=== PATIENT | female | born 1980 | race Two or more races ===

== ENCOUNTER 2022-01-09 22:18 | Emergency (ER) | payer OTHER ==
[~2022-01-09] VITALS: Ht 160 cm; Wt 90.9 kg
[2022-01-09 22:28] VITALS: BP 136/92
[2022-01-09] MEDS ORDERED: AZIT250T9 PO (23:27)
[2022-01-09] MEDS ORDERED: IPRATROPIUM BROMIDE 0.5 MG/2.5 ML NEB SOLUTION NEB ONE (23:30)
[2022-01-09] MEDS ORDERED: ALBUTEROL SULFATE 2.5 MG/0.5 ML NEB SOLUTION NEB ONE (23:30)
[2022-01-10 00:33] LABS: COVID AG,FIA SOURCE NASAL SWAB
== END 2022-01-10 00:58 | disposition home or self-care (01) ==
LOC: EMS 22:18
DX: J40 Bronchitis, not specified as acute or chronic (principal); Z20.822 Contact with and (suspected) exposure to COVID-19
CPT/HCPCS: 71045; 81025; 87426; 93005; 94640; 99285; C9803; J7613

== ENCOUNTER 2022-03-16 10:45 | Emergency (ER) | payer OTHER ==
[~2022-03-16] VITALS: Ht 160 cm; Wt 100.0 kg
[~2022-03-16 10:45] MED LIST: AZIT250T9 PO
[2022-03-16] MEDS ORDERED: COLE1 PO (11:03)
[2022-03-16 11:50] LABS: BASOPHILS % (AUTO) 0.7 % (0.0-2.0); EOSINOPHILS % (AUTO) 0.3 % (1.0-6.0); LYMPHOCYTES # (AUTO) 1.8 K/uL (1.0-4.8); LYMPHOCYTES % (AUTO) 15.6 % (22.0-44.0); MEAN CORPUSCULAR HEMOGLOBIN 29.2 pg (26.0-34.0); MEAN CORPUSCULAR HGB CONC 34.2 G/dL (31.0-37.0); MEAN CORPUSCULAR VOLUME 85 fL (80-100); MONOCYTES # (AUTO) 0.7 K/uL (0.1-1.0); MONOCYTES % (AUTO) 6.3 % (2.0-9.0); NEUTROPHILS # (AUTO) 8.9 K/uL (1.8-7.7); NEUTROPHILS % (AUTO) 77.1 % (40.0-70.0); PLATELET COUNT (AUTO) 405 K/uL (150-450); RED BLOOD CELL COUNT(AUTO) 4.45 MIL/uL (4.00-5.20); RED CELL DISTRIBUTION WIDTH 12.9 % (11.5-14.5)
[2022-03-16 11:54] LABS: APPEARANCE,URINE HAZY (CLEAR); BILIRUBIN,URINE NEGATIVE (NEGATIVE); GLUCOSE, URINE (UA) NEGATIVE (NEGATIVE); LEUKOCYTE ESTERASE ,URINE MODERATE (NEGATIVE); NITRATE,URINE POSITIVE (NEGATIVE); OCCULT BLOOD,URINE MODERATE (NEGATIVE); PROTEIN,URINE TRACE mg/dL (NEGATIVE); SPECIFIC GRAVITIY, URINE 1.022 (1.003-1.030); UROBILINOGEN,URINE <=1.0 mg/dL (<=1.0)
[2022-03-16] MEDS ORDERED: SODIUM CHLORIDE 0.9% 1,000 ML IV ONE (12:00)
[2022-03-16] MEDS ORDERED: ONDANSETRON HCL 4 MG/2 ML VIAL IVP ONE (12:00)
[2022-03-16 12:03] LABS: ANION GAP 10 mmol/L (8-16); CALCIUM, TOTAL 8.7 mg/dL (8.8-10.5); CARBON DIOXIDE 28 mmol/L (22-29); CHLORIDE 102 mmol/L (98-107); CREATININE 0.77 mg/dL (0.60-1.30); GLOMERULAR FILTR. RATE CALC > 60 mL/min (>60); GLUCOSE,RANDOM 109 mg/dL (70-110); POTASSIUM 3.8 mmol/L (3.5-5.1); SODIUM SERUM 140 mmol/L (136-145); UREA NITROGEN, BLOOD 10 mg/dL (7-18)
[2022-03-16 12:15] LABS: COVID AG,FIA SOURCE NASOPHARYNGEAL
[2022-03-16 12:15] LABS: ALANINE AMINOTRANSFERASE 35 U/L (12-78); ALBUMIN 3.5 g/dL (3.4-5.0); ALKALINE PHOSPHATASE 77 U/L (46-116); ASPARTATE AMINOTRANSFERASE 21 U/L (15-37); BILIRUBIN,TOTAL 0.5 mg/dL (0.1-1.0); HCG,QUANTITATIVE < 1 mIU/mL (0-6); LIPASE 127 U/L (73-393); TOTAL PROTEIN, SERUM 7.2 g/dL (6.4-8.2)
[2022-03-16 12:15] LABS: BACTERIA,URINE Many /HPF (None Seen); SQUAMOUS EPITHELIAL CELL,UR Few /LPF (None Seen)
[2022-03-16] MEDS ORDERED: MAG HYDROX/AL HYDROX/SIMETH ES 30 ML SUSPENSION UDCUP PO ONE (12:15)
[2022-03-16] MEDS ORDERED: LIDOCAINE 2% VISCOUS 15 ML SOLUTION UDCUP PO ONE (12:15)
[2022-03-16] MEDS ORDERED: ACETAMINOPHEN 500 MG TABLET PO ONE (14:30)
[2022-03-16] MEDS ORDERED: KETOROLAC TROMETHAMINE 30 MG/ML VIAL IVP ONE (14:30)
[2022-03-16] MEDS ORDERED: CefTRIAXone 1 GM/DEXTROSE 50 ML IV ONE (14:45)
[2022-03-16 15:31] LABS: C-REACTIVE PROTEIN QUANT 10.33 mg/dL (0.00-0.30)
[2022-03-16] MEDS ORDERED: SODIUM CHLORIDE 0.9% 100 ML ONE (15:35)
[2022-03-16] MEDS ORDERED: IOHEXOL 300 MG/ML 100 ML VIAL ONE (15:35)
[2022-03-16 16:22] LABS: ERYTHROCYTE SEDIMENTATION RATE 45 MM/HR (0-20)
[2022-03-16] MEDS ORDERED: MORPHINE SULFATE 4 MG/ML SYRINGE IVP ONE (16:45)
[2022-03-16 16:59] VITALS: BP 116/69
[2022-03-16] MEDS ORDERED: SULF-261 PO (17:31)
== END 2022-03-16 17:47 | disposition home or self-care (01) ==
LOC: EMS 10:45
DX: N12 Tubulo-interstitial nephritis, not specified as acute or chronic (principal); K52.9 Noninfective gastroenteritis and colitis, unspecified; Z90.49 Acquired absence of other specified parts of digestive tract; Z20.822 Contact with and (suspected) exposure to COVID-19
CPT/HCPCS: 36415; 74176; 74177; 80053; 81001; 83690; 84484; 84702; 85025; 85651; 86140; 87086; 87426; 93005; 96361; 96365; 96375; 99285; J1885; J2270; J2405; J7030; J7050; Q9967

== ENCOUNTER 2022-12-16 17:00 | Emergency (ER) | payer OTHER ==
[~2022-12-16] VITALS: Ht 165.1 cm; Wt 95.5 kg
[~2022-12-16 17:00] MED LIST changes: -AZIT250T9 PO; +COLE1 PO; +SULF-261 PO
[2022-12-16] MEDS ORDERED: CETI5TAB14 PO (17:22)
[2022-12-16] MEDS ORDERED: FLUT16SP NASAL (17:22)
[2022-12-16 17:42] LABS: COVID AG,FIA SOURCE NASAL SWAB
[2022-12-16 18:01] LABS: INFLUENZA TYPE A NEGATIVE FOR TYPE A (NEGATIVE); INFLUENZA TYPE B NEGATIVE FOR TYPE B (NEGATIVE)
[2022-12-16 19:19] VITALS: BP 135/75
[2022-12-16] MEDS ORDERED: AMOX500C2 PO (19:22)
[2022-12-16] MEDS ORDERED: IBUP-1492 PO (19:22)
== END 2022-12-16 19:55 | disposition home or self-care (01) ==
LOC: EMS 17:03
DX: H66.92 Otitis media, unspecified, left ear (principal); Z90.49 Acquired absence of other specified parts of digestive tract; Z98.890 Other specified postprocedural states; Z20.822 Contact with and (suspected) exposure to COVID-19
CPT/HCPCS: 87804; 99283

== ENCOUNTER 2023-02-19 14:13 | Emergency (ER) | payer OTHER ==
[~2023-02-19] VITALS: Ht 162.6 cm; Wt 100.0 kg
[~2023-02-19 14:13] MED LIST changes: +AMOX500C2 PO; +CETI5TAB14 PO; +FLUT16SP NASAL; +IBUP-1492 PO; -SULF-261 PO
[2023-02-19] MEDS ORDERED: CEPH-558 PO (15:32)
[2023-02-19] MEDS ORDERED: PHEN-674 PO (15:32)
[2023-02-19 16:04] VITALS: BP 148/76
== END 2023-02-19 16:13 | disposition home or self-care (01) ==
LOC: EMS 14:13
DX: N39.0 Urinary tract infection, site not specified (principal); Z90.49 Acquired absence of other specified parts of digestive tract; Z98.890 Other specified postprocedural states
CPT/HCPCS: 99283

== ENCOUNTER 2023-11-23 18:26 | Emergency (ER) | payer OTHER ==
[~2023-11-23] VITALS: Ht 162.6 cm; Wt 100.0 kg
[~2023-11-23 18:26] MED LIST changes: -AMOX500C2 PO; +CEPH-558 PO; -COLE1 PO; +COLE1TAB PO; -FLUT16SP NASAL; -IBUP-1492 PO; +PHEN-674 PO
[2023-11-23 18:28] VITALS: TEMP 98.4
[2023-11-23] MEDS ORDERED: FLUT16H NASAL (19:38)
[2023-11-23] MEDS ORDERED: ALBU18HF12 IH (19:38)
[2023-11-23] MEDS ORDERED: [UNRECOGNIZED DRUG - CODE] PO (19:38)
[2023-11-23] MEDS ORDERED: CETI10TA58 PO (19:38)
[2023-11-23] MEDS: KETOROLAC TROMETHAMINE 30 MG/ML VIAL IM ONE (19:59)
[2023-11-23 20:57] VITALS: BP 146/89; PULSE 81; RESP 14
== END 2023-11-23 21:01 | disposition home or self-care (01) ==
LOC: EMS 18:26
DX: M25.562 Pain in left knee (principal); Z90.49 Acquired absence of other specified parts of digestive tract; Z98.890 Other specified postprocedural states
CPT/HCPCS: 99283; 73562; 96372; J1885

== ENCOUNTER 2024-05-04 07:42 | Emergency (ER) | payer OTHER ==
[~2024-05-04] VITALS: Ht 162.6 cm; Wt 110.0 kg
[~2024-05-04 07:42] MED LIST changes: +ALBU18HF12 IH; -CEPH-558 PO; +CETI10TA58 PO; -CETI5TAB14 PO; +FLUT16H NASAL; -PHEN-674 PO; +[UNRECOGNIZED DRUG - CODE] PO
[2024-05-04 07:53] VITALS: TEMP 98
[2024-05-04] MEDS ORDERED: SEMA0.253 SQ (07:54)
[2024-05-04] MEDS: ACETAMINOPHEN 325 MG TABLET PO ONE (09:42)
[2024-05-04] MEDS: LIDOCAINE 5% TRANSDERMAL PATCH TD ONE (09:43)
[2024-05-04 10:46] VITALS: BP 130/84; PULSE 73; RESP 16
== END 2024-05-04 13:36 | disposition home or self-care (01) ==
LOC: EMS 07:45
DX: S76.912A Strain of unspecified muscles, fascia and tendons at thigh level, left thigh, initial encounter (principal); Z90.49 Acquired absence of other specified parts of digestive tract; Z98.890 Other specified postprocedural states; X50.1XXA Overexertion from prolonged static or awkward postures, initial encounter; Y93.89 Activity, other specified; Y92.89 Other specified places as the place of occurrence of the external cause; Y99.8 Other external cause status
CPT/HCPCS: 99283